=== PATIENT | female | born 1950 | race Caucasian/White ===

== ENCOUNTER → 2020-01-04 11:59 | Outpatient (CLI) | payer OTHER | END | disposition home or self-care (01) | LOC: D.RAD 11:59 | PROVIDERS: ATTEND Family Medicine | DX: M54.16 Radiculopathy, lumbar region (principal) ==

== ENCOUNTER → 2020-01-16 17:57 | Outpatient (CLI) | payer OTHER | END | disposition home or self-care (01) | LOC: D.LABREF 17:57 | PROVIDERS: ATTEND Orthopaedic Surgery | DX: M16.12 Unilateral primary osteoarthritis, left hip (principal) ==

== ENCOUNTER 2020-01-30 08:00 | Outpatient (CLI) | payer OTHER ==
[~2020-01-30 08:00] MED LIST: CALAN SR240 MG PO; MIRAPEX0.25 MG PO; SYMBICORT 16010.2 GM INH; ULTRAM50 MG PO; ZANAFLEX2 M1 PO
[2020-01-30 11:33] LABS: BASOPHILS 0.2 % (0-2); EOSINOPHILS 1.6 % (0-7); HEMATOCRIT 39.9 % (36.0-48.0); HEMOGLOBIN 12.6 g/dL (12-16); IMMATURE GRANULOCYTES 0.3 % (0-5); LYMPHOCYTES 15.9 % (15-50); MCH 27.3 pg (26.0-34.0); MCHC 31.6 g/dL (31.0-37.0); MCV 86.4 fL (80.0-100.0); MEAN PLATELET VOLUME 10.3 fL (7.4-10.4); MONOCYTES 8.2 % (2-11); NEUTROPHILS 73.8 % (40-80); PLATELET COUNT 407 10x3/uL (130-400); RBC 4.62 10x6/uL (4.00-5.40); RDW 16.1 % (11.5-14.5); WBC 11.4 10x3/uL (4.8-10.8)
[2020-01-30 11:51] LABS: ANION GAP 12.5 mmol/L (8-16); CALCIUM 9.5 mg/dL (8.5-10.1); CREATININE - SERUM 0.9 mg/dL (0.6-1.3); POTASSIUM - SERUM 3.5 mmol/L (3.5-5.1)
[2020-01-30 12:20] LABS: BILIRUBIN NEGATIVE (NEGATIVE); GLUCOSE NEGATIVE (NEGATIVE); KETONE NEGATIVE (NEGATIVE); NITRITE NEGATIVE (NEGATIVE); SPECIFIC GRAVITY 1.015 (1.005-1.020); UROBILINOGEN NORMAL (NORMAL)
[2020-01-30 12:23] LABS: APTT 30.4 SECONDS (22.8-39.4); INR 0.97 (0.85-1.17); PROTIME 12.8 SECONDS (11.6-15.0)
== END 2020-01-30 08:01 | disposition home or self-care (01) ==
LOC: D.PAN 08:00 → D.SDCHOLD 10:00 → EDSTATUS 02-05 10:00 → D.PAN 02-05 10:00 → D.SDCHOLD 02-05 10:00 → D.PAN 03-06 10:00
PROVIDERS: ATTEND Orthopaedic Surgery
DX: M16.12 Unilateral primary osteoarthritis, left hip (principal)

== ENCOUNTER → 2020-04-10 17:32 | Outpatient (CLI) | payer OTHER ==
[2020-03-19 12:37] VITALS: BMI 26.5
[~2020-04-10 17:32] MED LIST changes: +ELIQUIS2.5 MG PO; +HYDROCODON-ACE1 EA10 PO; +KEFLEX500 MG PO; +OXYBUTYNIN CHLOR5 M1 PO; +VISTARIL50 MG PO; +ZOFRAN ODT4 MG/UDTAB PO
== END | disposition home or self-care (01) ==
LOC: D.LABREF 17:32
PROVIDERS: ATTEND Orthopaedic Surgery
DX: M16.11 Unilateral primary osteoarthritis, right hip (principal)

== ENCOUNTER 2020-04-11 15:58 | Inpatient (IN) | payer OTHER ==
[~2020-04-11] VITALS: Ht 160 cm; Wt 67.3 kg
[2020-04-21 12:12] LABS: ANION GAP 13.1 mmol/L (8-16); CALCIUM 9.6 mg/dL (8.5-10.1); CARBON DIOXIDE 26.8 mmol/L (21.0-32.0)
[2020-04-21 12:18] LABS: APTT 33.7 SECONDS (22.8-39.4); INR 1.06 (0.85-1.17); PROTIME 13.7 SECONDS (11.6-15.0)
[2020-04-21 13:06] LABS: POTASSIUM - SERUM 2.9 mmol/L (3.5-5.1)
[2020-04-21 13:38] LABS: BASOPHILS 0.3 % (0-2); EOSINOPHILS 0.2 % (0-7); HEMATOCRIT 38.6 % (36.0-48.0); HEMOGLOBIN 12.3 g/dL (12-16); IMMATURE GRANULOCYTES 0.3 % (0-5); LYMPHOCYTES 16.3 % (15-50); MCH 26.5 pg (26.0-34.0); MCHC 31.9 g/dL (31.0-37.0); MCV 83.2 fL (80.0-100.0); MEAN PLATELET VOLUME 10.6 fL (7.4-10.4); MONOCYTES 7.8 % (2-11); NEUTROPHILS 75.1 % (40-80); PLATELET COUNT 413 10x3/uL (130-400); RBC 4.64 10x6/uL (4.00-5.40); RDW 16.6 % (11.5-14.5); WBC 10.9 10x3/uL (4.8-10.8)
[2020-04-21 13:54] LABS: BILIRUBIN NEGATIVE (NEGATIVE); GLUCOSE NEGATIVE (NEGATIVE); KETONE MODERATE mg/dL (NEGATIVE); NITRITE NEGATIVE (NEGATIVE); UROBILINOGEN NORMAL (NORMAL); WHITE CELLS - URINE RARE /hpf (NEGATIVE)
[2020-04-21 13:55] LABS: BACTERIA FEW /hpf (NEGATIVE); EPITHELIAL CELLS 0-5 /hpf (0-5); RED CELLS - URINE OCC /hpf (0-5)
[2020-04-23 06:06] VITALS: BP 121/66; BMI 29.2
[2020-04-23 06:23] LABS: BASOPHILS 0.1 % (0-2); EOSINOPHILS 1.5 % (0-7); HEMATOCRIT 35.2 % (36.0-48.0); HEMOGLOBIN 10.8 g/dL (12-16); IMMATURE GRANULOCYTES 0.3 % (0-5); LYMPHOCYTES 16.5 % (15-50); MCH 25.8 pg (26.0-34.0); MCHC 30.7 g/dL (31.0-37.0); MEAN PLATELET VOLUME 10.4 fL (7.4-10.4); MONOCYTES 7.9 % (2-11); NEUTROPHILS 73.7 % (40-80); PLATELET COUNT 391 10x3/uL (130-400); RBC 4.19 10x6/uL (4.00-5.40); RDW 16.7 % (11.5-14.5); WBC 10.5 10x3/uL (4.8-10.8)
--- NOTE | 2020-04-23 07:48 | NUR ---
THROUGH TRAFFIC KEPT TO MINIMUM. HIBACLENS AND ALCOHOL USED TO CLEAN RIGHT HIP/LEG BEFORE PREPPING. STERILE GOWNED AND GLOVED TO PREP WITH CHLORAPREP.
[2020-04-23 09:30] VITALS: BP 126/66
[2020-04-23 09:42] VITALS: BP 122/62; Ht 160 cm; Wt 67.3 kg
--- NOTE | 2020-04-23 11:11 | NUR ---
PT RESTING QUIETLY WITH NO S/S OF DISTRESS. VSS. CALL LIGHT IN REACH.
--- NOTE | 2020-04-23 13:07 | MORECARE ---
CASE MANAGEMENT DISCHARGE SUMMARY PATIENT: JSOE HAWK UNIT: [id number] ADM DATE: 04/23/20 AGE: 69 : 50 SEX: F ROOM/BED: D.1213 AUTHOR: JOHANNA GROVER PHYSICIAN: REFERRING PHYSICIAN: DELMY GONSALES DO DATE OF SERVICE: 04/23/20 Discharge Plan Patient Name: JOSE HAWK [facility] [facility] 1950 Planned Disposition: Anticipated Discharge Date: Discharge Date: Expected LOS: 0 Initial Reviewer: [email or web address] Initial Review Date: 04/23/2020 Generated: 04/23/20 2:07 pm Patient Name: JOSE HAWK Page [id number] at 1307 All edits/amendments must be made on the electronic document DICTATION DATE: 04/23/20 1307 ESL TEACHER: NICOLA 04/23/20 1307 RPT#: [id number] DC DATE: STATUS: ADM IN [facility] [address] [place] [address] END OF REPORT
--- NOTE | 2020-04-23 13:24 | NUR ---
PT SITTING UP IN BED, NO S/SX OF DISTRESS, CL IN REACH, SPOUSE AT BEDSIDE, STARTED PT ANTIBIOTIC, PT STATED PAIN IS AT ABOUT 2-3 DECLINED NO OTHER NEEDS AT THIS TIME, CONTINUE WITH PLAN OF CARE
--- NOTE | 2020-04-23 15:47 | OP ---
PATIENT NAME: JOSE HAWK MEDICAL RECORD: [id number] :50 LOCATION:D.M3 D.1213 ADMISSION DATE:04/23/20 SURGEON: EDUAR GONSALES DO DATE OF OPERATION: 04/23/2020 PROCEDURE PERFORMED: Right total hip arthroplasty. PREOPERATIVE DIAGNOSIS: Right hip osteoarthritis. POSTOPERATIVE DIAGNOSIS: Right hip osteoarthritis. INDICATIONS: Ms. Hawk is a 69-year-old female who has had right hip pain for quite some time. She had the left hip replaced approximately a month ago - 5 weeks ago, the left hip went very well. She was walking unassisted and wanted the right hip done, so I told her that she would be at increased risk for pain, blood clots, damage to nerves and vessels, need for further surgery, continued pain, fracture, and even and she signed the consent. SURGEON: Eduar Gonsales DO DESCRIPTION OF PROCEDURE: The patient was taken to the operative suite, laid in supine position, given general anesthetic and intubated. She was given a gram of Ancef and 80 mg gentamicin preoperatively. She was also given a gram of TXA preoperatively. She was then placed on the [place] table and the right hip was prepped and draped in sterile fashion. Timeout was performed. Everyone was in agreement with the correct side, site, patient, and procedure. We then began by making an incision over the tensor fascia renetta muscle. Careful dissection was made down to the muscle and the fascia was taken anteriorly, muscle posteriorly, opened up the rectus interval. Rectus fascia was then opened, taking the rectus medially and the tensor fascia renetta laterally. I then dissected down to the ascending branch of lateral femoral circumflex and tied it off and coagulated with the Aquamantys. I then went down the capsule, put Hohmann on either side of the neck and opened up the capsule and tagged it. We then put Hohmann inside the neck, made a neck cut and removed the head. I then removed the labrum off the hip as well as the pulvinar and began reaming up to a 50 and 50 cup was impacted into place and the liner was impacted and this was done under x-ray to assure good position. The femur was then exposed and began first with a canal finder and cookie cutter and then broached with the 4 up to a 9. The 9 broach fit well, reduced the hip with a -3 neck that she had on the other side and it was in good alignment, equal length to the left hip. This was then removed and then the actual implant was put in after irrigating and reducing the hip. We then got x-rays ensuring there were no fractures in the femur, there was none seen and there was good alignment and length on AP pelvis. The wound was then irrigated with 10% povidone-iodine and 500 mL of normal saline and also this was set for 3 minutes and irrigated out with a liter of normal saline. We then put in Neema and vancomycin and tobramycin powder and then closed the tensor fascia renetta fascia first with #1 Vicryl in obtzii-ho-fuvju and then a running locking stitch. Brandan Ramachandran closed the skin with 2-0 Vicryl in inverted interrupted fashion, 4-0 Monocryl running on the skin and Prineo glue placed on the skin. She was then dressed with Telfa and Tegaderm and awoke and taken to recovery in stable condition. Blood loss was approximately 200 mL. COMPLICATIONS: None. TRANSINT:[id number] Voice Confirmation ID: [id number] DOCUMENT ID: [id number] OPERATIVE REPORT [id number] JOSE HAWK MICHAEL D, DO at 1547 CC: [id number] DICTATION DATE: 04/23/20 0834 SUPERVISOR INSECTICIDE: 04/23/20 0949 ADM IN [facility] [address] [id number]
[2020-04-23 16:18] LABS: IRON 30 ug/dl (35-150)
[2020-04-23 16:19] LABS: % SATURATION 10 % (15-55); TOTAL IRON BIND CAPACITY 300 ug/dl (260-445); UNSAT IRON BIND CAPACITY 270 ug/dl (150-375)
--- NOTE | 2020-04-23 20:00 | NUR ---
ALERT RESTING IN BED DENIES PAIN OR NEEDS AT THIS TIME, SEE SHIFT ASSESSMENT, ASSISTED TO BATHROOM WITH WALKER AND BACK TO BED WITHOUT DIFFICULTY, CALL LIGHT IN REACH
[2020-04-23 20:01] VITALS: BP 127/67
[2020-04-24 00:06] VITALS: BP 155/75
[2020-04-24 05:45] VITALS: BP 141/75
[2020-04-24 07:02] LABS: HEMATOCRIT 28.6 % (36.0-48.0); HEMOGLOBIN 9.1 g/dL (12-16); LYMPHOCYTES 5.4 % (15-50); MCH 26.8 pg (26.0-34.0); MCHC 31.8 g/dL (31.0-37.0); MCV 84.1 fL (80.0-100.0); MEAN PLATELET VOLUME 11.1 fL (7.4-10.4); NEUTROPHILS 87.5 % (40-80); PLATELET COUNT 325 10x3/uL (130-400); RDW 16.8 % (11.5-14.5)
[2020-04-24 07:06] LABS: WBC 15.8 10x3/uL (4.8-10.8)
[2020-04-24 07:25] LABS: ALBUMIN 2.8 g/dL (3.4-5.0); ANION GAP 10.5 mmol/L (8-16); BILIRUBIN - TOTAL 0.29 mg/dL (0.2-1.3); CREATININE - SERUM 1.1 mg/dL (0.6-1.3); PROTEIN - SERUM 5.9 g/dL (6.4-8.2)
[2020-04-24 07:27] LABS: POTASSIUM - SERUM 4.5 mmol/L (3.5-5.1)
--- NOTE | 2020-04-24 07:31 | NUR ---
PATIENT HAS HOME MED. PREFERS [facility] OVER NEB MEDS.
--- NOTE | 2020-04-24 09:00 | MORECARE ---
CASE MANAGEMENT DISCHARGE SUMMARY PATIENT: JOSE HAWK UNIT: [id number] ADM DATE: 04/23/20 AGE: 69 : 50 SEX: F ROOM/BED: D.1213 AUTHOR: JOHANNA GROVER PHYSICIAN: REFERRING PHYSICIAN: DELMY GONSALES DO DATE OF SERVICE: 04/24/20 Discharge Plan Patient Name: JOSE HAWK [facility] [facility] 1950 Planned Disposition: Anticipated Discharge Date: Discharge Date: Expected LOS: 0 Initial Reviewer: [email or web address] Initial Review Date: 04/23/2020 Generated: 04/24/20 10:00 am Last DP export: 04/23/20 12:07 p Patient Name: JOSE HAWK Page [id number] at 0900 All edits/amendments must be made on the electronic document DICTATION DATE: 04/24/20899 REFRIGERATOR MOVER: NICOLA 04/24/20 09 RPT#: [id number] DC DATE: STATUS: ADM IN [facility] [address] [place] [address] END OF REPORT
--- NOTE | 2020-04-24 09:11 | NUR ---
PT ALERT X 4. BREATH SOUNDS CLEAR BILAT. IV TO LEFT FOREARM SALINE LOCKED. DRESSING TO RIGHT HIP CDI. PT REPORTING PAIN OF 3/10, WILL CONTINUE TO MONITOR. BED LOW, CALL LIGHT IN REACH. NO OTHER NEEDS AT THIS TIME.
[2020-04-24 09:52] VITALS: BP 126/69
[2020-04-24 12:04] VITALS: BP 149/70
[2020-04-24] MEDS ORDERED: ELIQUIS2.5 MG PO (12:38)
[2020-04-24] MEDS ORDERED: HYDROCODON-ACE1 EA10 PO (12:39)
[2020-04-24] MEDS ORDERED: KEFLEX500 MG PO (12:39)
--- NOTE | 2020-04-24 14:38 | NUR ---
DISCHARGE PAPERWORK SIGNED, ALL QUESTIONS ANSWERED. IV TO LEFT FOREARM DC'D, TIP INTACT. DRESSING CHANGED PER ORDERS. ESCORTED OUT VIA WHEELCHAIR.
--- NOTE | 2020-04-25 09:01 | MORECARE ---
CASE MANAGEMENT DISCHARGE SUMMARY PATIENT: JOSE HAWK UNIT: [id number] ADM DATE: 04/23/20 AGE: 69 : 50 SEX: F ROOM/BED: D.1213 AUTHOR: JOHANNA GROVER PHYSICIAN: REFERRING PHYSICIAN: DELMY GONSALES DO DATE OF SERVICE: 04/25/20 Discharge Plan Patient Name: JOSE HAWK [facility] [facility] 1950 Planned Disposition: Anticipated Discharge Date: Discharge Date: 04/24/2020 Expected LOS: 0 Initial Reviewer: [email or web address] Initial Review Date: 04/23/2020 Generated: 04/25/20 10:01 am Last DP export: 04/24/20 8:00 a Patient Name: JOSE HAWK Page 52003 at 0901 All edits/amendments must be made on the electronic document DICTATION DATE: 04/25/20900 TALENT PARTNER: NICOLA 04/25/20900 RPT#: [id number] DC DATE:04/24/20 STATUS: DIS IN [facility] [address] [place] [address] END OF REPORT
--- NOTE | 2020-04-25 22:43 | MORECARE ---
CASE MANAGEMENT DISCHARGE SUMMARY PATIENT: JOSE HAWK UNIT: [id number] ADM DATE: 04/23/20 AGE: 69 : 50 SEX: F ROOM/BED: D.1213 AUTHOR: JOHANNA GROVER PHYSICIAN: REFERRING PHYSICIAN: DELMY GONSALES DO DATE OF SERVICE: 04/25/20 Discharge Plan Patient Name: JOSE HAWK [facility] [facility] 1950 Planned Disposition: Anticipated Discharge Date: Discharge Date: 04/24/2020 Expected LOS: 0 Initial Reviewer: [email or web address] Initial Review Date: 04/23/2020 Generated: 04/25/20 11:42 pm DCPIA - Discharge Planning Initial Assessment Updated by [email or web address]: Rebecca Torrez on 04/25/20 10:42 pm * Is the patient Alert and Oriented? Yes * How many steps to enter\exit or inside your home? * PCP [facility] * Pharmacy [facility] * Preadmission Environment Home with Family * ADLs Independent * Equipment Walker * List name and contact numbers for known caregivers / representatives who currently or will assist patient after discharge: LEE HAWK - SPOUSE - [phone] * Verbal permission to speak to the caregivers and representatives has been obtained from the patient. Yes * Community resources currently utilized None * Additional services required to return to the preadmission environment? No * Can the patient safely return to the preadmission environment? Yes * Has this patient been hospitalized within the prior 30 days at any hospital? No Last DP export: 04/25/20 8:01 a Patient Name: JOSE HAWK Page 19456 at 2243 All edits/amendments must be made on the electronic document DICTATION DATE: 04/25/202241 QUILLER TENDER: NICOLA 04/25/202241 RPT#: [id number] DC DATE:04/24/20 STATUS: DIS IN [facility] [address] [place] [address] END OF REPORT
--- NOTE | 2020-04-25 22:49 | MORECARE ---
CASE MANAGEMENT DISCHARGE SUMMARY PATIENT: JOSE HAWK UNIT: [id number] ADM DATE: 04/23/20 AGE: 69 : 50 SEX: F ROOM/BED: D.1213 AUTHOR: REILLY,DOC PHYSICIAN: REFERRING PHYSICIAN: DELMY GONSALES DO DATE OF SERVICE: 04/25/20 Discharge Plan Patient Name: JOSE HAWK [facility]:[place] : 1950 Planned Disposition: Anticipated Discharge Date: Discharge Date: 04/24/2020 Expected LOS: 0 Initial Reviewer: [email or web address] Initial Review Date: 04/23/2020 Generated: 04/25/20 11:49 pm Comments DCP- Discharge Planning Updated by [email or web address]: Rebecca Torrez on 04/25/20 9:[address] Patient Name: JOSE HAWK Admission Status: Elective Accout number: [id number] Admission Date: 04-23-2020 : 1950 Admission Diagnosis:UNILATERAL PRIMARY OSTEOARTHRITIS, RIGHT HIP Attending: DELMY GONSALES Current LOS: 1 Anticipated DC Date: Planned Disposition: Primary Insurance: [employer] Discharge Planning Comments: CM met with patient to complete initial dc planning assessment. CM educated patient on the CM role and verbal consent given by patient to complete assessment. Patient lives at home with family. Patient is independent. At discharge patient plans to return home and feels this is a safe discharge. CM discussed availability of home health, rehab services, and medical equipment. Patient will have family to transport home. Patient denied known discharge needs at this time. Patient has outpatient therapy set up with [facility] for Tuesday @ 1330. CM will continue to follow and will assist as needed with dc plans/needs. Apparel Designer: Rebecca Torrez DCPIA - Discharge Planning Initial Assessment Updated by [email or web address]: Rebecca Torrez on 04/25/20 10:42 pm * Is the patient Alert and Oriented? Yes * How many steps to enter\exit or inside your home? * PCP [facility] * Pharmacy [facility] * Preadmission Environment Home with Family * ADLs Independent * Equipment Walker * List name and contact numbers for known caregivers / representatives who currently or will assist patient after discharge: LEE HAWK - SPOUSE - [phone] * Verbal permission to speak to the caregivers and representatives has been obtained from the patient. Yes * Community resources currently utilized None * Additional services required to return to the preadmission environment? No * Can the patient safely return to the preadmission environment? Yes * Has this patient been hospitalized within the prior 30 days at any hospital? No Last DP export: 04/25/20 9:43 p Patient Name: JOSE HAWK Page 53728 at 1917 All edits/amendments must be made on the electronic document DICTATION DATE: 04/25/202248 PROCEDURE WRITER: NICOLA 04/25/202248 RPT#: [id number] DC DATE:04/24/20 STATUS: DIS IN [facility] [address] [place] [address] END OF REPORT
== END 2020-04-24 14:39 | disposition home or self-care (01) | DRG 470 ==
LOC: D.SDCHOLD 04-23 05:20 → D.M3 04-23 05:20 → D.SDCHOLD 04-23 07:00 → D.M3 04-23 08:55
PROVIDERS: Family Medicine; ADMIT Orthopaedic Surgery; ATTEND Orthopaedic Surgery
PROC: 0SR90JZ Replacement of Right Hip Joint with Synthetic Substitute, Open Approach (ICD-10-PCS; principal; 2020-04-23 07:00)
DX: M16.11 Unilateral primary osteoarthritis, right hip (principal); I10 Essential (primary) hypertension; J45.909 Unspecified asthma, uncomplicated; E61.1 Iron deficiency; Z87.891 Personal history of nicotine dependence